=== PATIENT | female | born 1955 | race Caucasian/White ===

== ENCOUNTER 2021-12-21 12:48 | Emergency (ER) | payer MEDICARE ==
[~2021-12-21] VITALS: Ht 162.6 cm; Wt 99.5 kg
[~2021-12-21 12:48] MED LIST: ALEVE ARTHRITI220 MG PO; ASPIRIN E.C. 8181 MG PO; LANTUS100 U/ML SQ; METFORMIN1000 MG PO
[2021-12-21 15:05] LABS: HEMOGLOBIN 11.9 g/dl (12.5-16.0); MEAN CELL VOLUME 97 fl (80.0-100.0); MEAN CORPUSCULAR HEMOGLOBIN 33 pg (27-31); MEAN CORPUSCULAR HGB CONC 34 g/dl (33.0-37.0); MEAN PLATELET VOLUME 13.3 fl (7.4-10.4); PLATELET COUNT 113 K/mm3 (130-400); RED BLOOD COUNT 3.61 M/mm3 (4.10-5.30); REDCELL DISTRIBUTION WIDTH-CV 12.8 % (11.5-14.5)
[2021-12-21 15:14] LABS: ALBUMIN 2.6 gm/dL (3.4-4.8); BILIRUBIN,TOTAL 0.8 mg/dL (0.2-1.2); C-REACTIVE PROTEIN 0.53 mg/dL (0.00-0.50); CALCIUM 8.4 mg/dL (8.4-10.2); CREATININE, serum 0.71 mg/dL (0.57-1.11); POTASSIUM 3.9 mmol/L (3.5-4.5); TOTAL PROTEIN 6.5 gm/dL (6.2-8.1)
[2021-12-21 15:29] LABS: INR 1.2 (0.8-3.0); PROTHROMBIN TIME 13.6 SECONDS (9.7-12.8)
[2021-12-21 15:32] LABS: HEMATOCRIT 35.1 % (37.0-47.0)
[2021-12-21 15:35] LABS: BAND 2 % (0-10); LYMPHOCYTE 57 % (20.0-51.0); NEUTROPHILS 35 % (42.0-75.2)
[2021-12-21 15:36] LABS: PLATELET ESTIMATE NORMAL (NORMAL)
[2021-12-21 15:41] LABS: COLLECTION METHOD CLEAN CATCH
[2021-12-21 15:47] LABS: URINE APPEARANCE Clear (CLEAR/HAZY); URINE COLOR OTHER (YELLOW)
[2021-12-21 15:48] LABS: PH 5.5 (5.0-8.5); URINE BLOOD Negative (NEGATIVE); URINE GLUCOSE Negative (NEGATIVE); URINE KETONE Negative (NEGATIVE); URINE NITRATE Negative (NEGATIVE); URINE PROTEIN(semi-quant) Negative (NEGATIVE)
[2021-12-21] MEDS ORDERED: MEDROL 4MG DOSPA4 MG PO (15:51)
[2021-12-21] MEDS ORDERED: PERCOCET 325 MG1 TA2 PO (15:51)
[2021-12-21 15:52] LABS: MUCOUS Present (NOT PRESENT); URINE BACTERIA None Seen /hpf (NONE SEEN); URINE RBC 0-2 /hpf (0-2)
[2021-12-21 16:18] VITALS: BP 107/57; PULSE 76; TEMP 97.7
== END 2021-12-21 16:09 | disposition home or self-care (01) ==
LOC: COL.ER 12:48
PROVIDERS: Family Medicine
DX: M54.50 Low back pain, unspecified (principal); G89.29 Other chronic pain; K74.60 Unspecified cirrhosis of liver
CPT/HCPCS: J2405; J7120; Q9967